=== PATIENT | female | born 1975 | race Caucasian/White ===

== ENCOUNTER 2017-05-15 23:09 | Emergency (ER) | payer SELFPAY ==
[~2017-05-15] VITALS: Ht 162.6 cm; Wt 86.5 kg
[~2017-05-15 23:09] MED LIST: CIPR500T4 PO; HYDR-3498 PO; IBUP-1542 PO; IBUP400T22 PO; NITR-58 PO; PHEN-538 PO
[2017-05-15 23:10] VITALS: Ht 162.6 cm; Wt 86.5 kg
[2017-05-16] MEDS ORDERED: NAPR-260 PO (00:57)
--- NOTE | 2017-05-16 01:33 | ERD ---
ER Documentation Chief Complaint Chief Complaint left foot swelling x 4 days, denies injury HPI 11-year-old female complaining of left MTP joint swelling 4 days. Denies recent trauma. Has pain with ambulation. Feels that her plantar MTP joint is swollen. Has not taken medications for symptoms. Denies any numbness or tingling. Has never had this before. ROS All systems reviewed and are negative except as per history of present illness. Medications Home Meds Active Scripts Naproxen* (Naprosyn*) 500 Mg Tablet, 500 MG PO BID Y for PAIN AND/OR INFLAMMATION, #30 TAB Prov:PANFILO BARRIENTOS PA-C 05/16/17 Ibuprofen* (Motrin*) 400 Mg Tab, 400 MG PO Q6, #30 TAB 0 Refills Prov:RAMILA BAILEY PA-C 09/01/15 Ibuprofen* (Ibuprofen*) 600 Mg Tablet, 600 MG PO Q6, #30 TAB Prov:ANNE WHEAT PA-C 06/03/15 Hydrocodone Bit-Acetaminophen* (Staples*) 5-325 Mg Tab, 1 TAB PO Q4H Y for PAIN, # 12 TAB Prov:ANNE WHEAT 06/03/15 Phenazopyridine Hcl* (Pyridium*) 200 Mg Tab, 200 MG PO TID for 2 Days, TAB Prov:ANNE WHEAT PA-C 06/03/15 Ciprofloxacin Hcl* (Ciprofloxacin Hcl*) 500 Mg Tablet, 500 MG PO BID for 10 Days , TAB Prov:ANNE WHEAT PA-C 06/03/15 Phenazopyridine Hcl* (Pyridium*) 200 Mg Tab, 200 MG PO TID, #6 TAB Prov:ANSON PINEDA NP 04/02/15 Nitrofurantoin Monohyd Macrocr* (Macrobid*) 100 Mg Capsr, 100 MG PO BID for 7 Days, CAP Prov:ANSON PINEDA NP 04/02/15 Allergies Allergies: Coded Allergies: No Known Allergy (Unverified , 04/01/15) PMhx/Soc History of Surgery: Yes () Anesthesia Reaction: No Hx Neurological Disorder: No Hx Respiratory Disorders: No Hx Cardiac Disorders: No Hx Psychiatric Problems: No Hx Miscellaneous Medical Probl: No Hx Alcohol Use: No Hx Substance Use: No Hx Tobacco Use: No Physical Exam Vitals Physical Exam GENERAL: The patient is well-appearing, well-nourished, in no acute distress CHEST: Clear to auscultation bilaterally. There are no rales, wheezes or rhonchi. HEART: Regular rate and rhythm. No murmurs, clicks, rubs or gallops. No S3 or S4. EXTREMITIES: strength 5 out of 5 with flexion extension of the first left toe. NEUROLOGIC: Alert and oriented. Cranial nerves II through XII intact. Motor strength in all 4 extremities with 5 out of 5 strength. Sensation grossly intact. Normal speech and gait. Babinski negative. DTR 2+ throughout. SKIN: Erythema or warmth noted to the left great MTP joint. No swelling. No obvious deformity. Procedures/MDM DIAGNOSTIC IMAGING REPORT Patient: IRIS ALEXIS : 1975 Age: 41 Sex: F MR #: [id number] DOS: 05/16/17 0038 Ordering MD: COLLEEN BARRIENTOS PA-C Location: [facility] Room/Bed: PROCEDURE: XR Foot. CLINICAL INDICATION: Pain. TECHNIQUE: AP, lateral and oblique views of the left foot was obtained. The images were reviewed on a PACS workstation. COMPARISON: None. FINDINGS: The bones of the foot appear intact, with no evidence of fracture, dislocation, or subluxation. The joint spaces are preserved. Bone mineralization is normal. No significant soft tissue swelling is seen. There is minimal posterior calcaneal degenerative enthesopathy. IMPRESSION: 1. No acute fracture or dislocation. 2. Minimal posterior calcaneal degenerative enthesopathy. MDM: 41-year-old female complaining of pain to the MTP joint. I have low suspicion for acute fracture dislocation. I have low suspicion for septic joint. I have low suspicion for retained foreign body. Patient will be discharged with pain medication and told to ice and elevate the extremity. Patient is told if symptoms change or worsen to return to the ER immediately. All questions answered at discharge. Departure Diagnosis: Primary Impression: Foot pain Condition: Stable Patient Instructions: Contusion, Lower Extremity Referrals: [facility] YOU HAVE RECEIVED A MEDICAL SCREENING EXAM AND THE RESULTS INDICATE THAT YOU DO NOT HAVE A CONDITION THAT REQUIRES URGENT TREATMENT IN THE EMERGENCY DEPARTMENT. FURTHER EVALUATION AND TREATMENT OF YOUR CONDITION CAN WAIT UNTIL YOU ARE SEEN IN YOUR DOCTORS OFFICE WITHIN THE NEXT 1-2 DAYS. IT IS YOUR RESPONSIBILITY TO MAKE AN APPOINTMENT FOR FOLOW-UP CARE. IF YOU HAVE A PRIMARY DOCTOR --you should call your primary doctor and schedule an appointment IF YOU DO NOT HAVE A PRIMARY DOCTOR YOU CAN CALL OUR PHYSICIAN REFERRAL HOTLINE AT IF YOU CAN NOT AFFORD TO SEE A PHYSICIAN YOU CAN CHOSE FROM THE FOLLOWING [facility] [address] [facility] [address] [facility] [facility] [address] [facility] [address] [facility] [address] [facility]. [facility]. [address] Additional Instructions: FOLLOW UP WITH YOUR PRIMARY CARE PHYSICIAN TOMORROW.Return to this facility if you are not improving as expected. PANFILO BARRIENTOS PA-C May 16, 2017 01:33
--- NOTE | 2017-05-16 02:05 | RADRPT ---
PROCEDURE: XR Foot. CLINICAL INDICATION: Pain. TECHNIQUE: AP, lateral and oblique views of the left foot was obtained. The images were reviewed on a PACS workstation. COMPARISON: None. FINDINGS: The bones of the foot appear intact, with no evidence of fracture, dislocation, or subluxation. The joint spaces are preserved. Bone mineralization is normal. No significant soft tissue swelling is se en. There is minimal posterior calcaneal degenerative enthesopathy. IMPRESSION: 1. No acute fracture or dislocation. 2. Minimal posterior calcaneal degenerative enthesopathy. RPTAT: HRSR Physician Tien Date Time Electronically viewed and signed by Physician Tien on 05/16/2017 02:05 RR/
[2017-05-16 02:41] VITALS: BP 114/73; PULSE 60; RESP 18; TEMP 98
== END 2017-05-16 02:43 | disposition home or self-care (01) ==
LOC: FTE 23:09
DX: M79.672 Pain in left foot (principal)

== ENCOUNTER 2017-12-03 20:51 | Emergency (ER) | END 2017-12-04 01:44 | disposition home or self-care (01) ==